=== PATIENT | female | born 1930 | race Caucasian/White ===

== ENCOUNTER → 2017-08-23 | Outpatient (CLI) | payer MEDICARE | LOC: GMAB 10:39 | PROVIDERS: ATTEND Family Medicine | DX: I10 Essential (primary) hypertension (principal) ==

== ENCOUNTER → 2017-10-12 | Outpatient (CLI) | payer MEDICARE | LOC: GMAE 14:30 | PROVIDERS: ATTEND Family Medicine | DX: R63.4 Abnormal weight loss (principal) ==

== ENCOUNTER 2019-06-11 | Observation (INO) | payer MEDICARE | END 2019-06-12 16:55 | disposition home health service (06) | PROVIDERS: ADMIT Nurse Practitioner Family | DX: I48.91 Unspecified atrial fibrillation (principal); R29.810 Facial weakness; N30.00 Acute cystitis without hematuria; E80.6 Other disorders of bilirubin metabolism; R79.89 Other specified abnormal findings of blood chemistry; I11.9 Hypertensive heart disease without heart failure; E78.5 Hyperlipidemia, unspecified; M19.90 Unspecified osteoarthritis, unspecified site; M47.812 Spondylosis without myelopathy or radiculopathy, cervical region; R90.82 White matter disease, unspecified; I70.8 Atherosclerosis of other arteries; K80.20 Calculus of gallbladder without cholecystitis without obstruction; K57.30 Diverticulosis of large intestine without perforation or abscess without bleeding; M85.88 Other specified disorders of bone density and structure, other site; J44.9 Chronic obstructive pulmonary disease, unspecified; Z79.82 Long term (current) use of aspirin; Z79.899 Other long term (current) drug therapy; Z86.79 Personal history of other diseases of the circulatory system; Z95.0 Presence of cardiac pacemaker; Z90.12 Acquired absence of left breast and nipple; Z85.828 Personal history of other malignant neoplasm of skin; Z82.3 Family history of stroke; Z80.3 Family history of malignant neoplasm of breast; Z83.6 Family history of other diseases of the respiratory system | CPT/HCPCS: 96361; 96365; 96375 ×2; 96376 ×2; 96372; J0696 ×2; J2405; J7030 ×2; J1650; J7050 ×4; 80053; 87086; 80061; 36415; 81001; 85025; 82550; 83735; 85730; 85610; 84443; 84484; 83880; 83605; 71045; 71046; 72170; 70450; 72125; 74177; 93880; 94760; 97162; 99285; 93306; 93005; G0378 ==

== ENCOUNTER → 2019-09-06 | Outpatient (CLI) | payer MEDICARE | LOC: GMAE 10:48 | PROVIDERS: ATTEND Family Medicine | DX: I48.91 Unspecified atrial fibrillation (principal) ==

== ENCOUNTER 2019-09-08 | Emergency (ER) | payer MEDICARE ==
--- NOTE | 2019-09-08 20:11 | ED.PDOC ---
History of Present Illness - General Time Seen by Provider: 09/08/19 19:41 Source: patient, family Exam Limitations: clinical condition - History of Present Illness Initial Comments: The patient is a 89-year-old female presented emergency room secondary to edema to the lower left lower extremity. Edema has been present for 7 to 10 days. Edema started after the patient accidentally tripped and fell and hit the side of her calf on something. She has a fairly large bruise there. She has been ambulatory without significant difficulty since but the edema has been accumulating since that time. Has a small amount of weeping. No evidence of any infection. She has had increased edema on his lower extremity before. She does take a diuretic. No neurovascular change otherwise. The bruise to the lateral calf is approximately 4 inches x 2 inches. Timing/Duration: other Severity: moderate Improving Factors: nothing Worsening Factors: nothing Associated Symptoms: denies symptoms Allergies/Adverse Reactions: Allergies NO KNOWN ALLERGY Allergy (Verified 06/11/19 21:39) Home Medications: Ambulatory Orders Cefuroxime Axetil [Ceftin] 500 mg PO Q12H #14 tablet 06/12/19 Clopidogrel Bisulfate [Plavix] 75 mg PO DAILY #30 tab 06/12/19 Furosemide Tab 20 mg PO DAILY 06/12/19 Verapamil HCl [Verapamil Hydrochloride] 60 mg PO DAILY 06/12/19 Review of Systems - Review of Systems Constitutional: States: no symptoms reported EENTM: States: no symptoms reported Respiratory: States: no symptoms reported Cardiology: States: no symptoms reported Gastrointestinal/Abdominal: States: no symptoms reported Genitourinary: States: no symptoms reported Musculoskeletal: States: see HPI Skin: States: see HPI Neurological: States: no symptoms reported Endocrine: States: no symptoms reported All other Systems: No Change from Baseline Past Medical History (General) - Patient Medical History Hx Seizures: No Hx Stroke: Yes Hx Dementia: No Hx Asthma: No Hx of COPD: No Hx Cardiac Disorders: Yes - A Fib Hx Congestive Heart Failure: No Hx Pacemaker: No Hx Hypertension: Yes Hx Thyroid Disease: No Hx Diabetes: No Hx Gastroesophageal Reflux: No Hx Renal Disease: No Hx Cancer: Yes - Breast Hx of HIV: No Hx Hepatitis C: No Hx MRSA: No Surgical History: appendectomy, other - Vaccination History Hx Tetanus, Diphtheria Vaccination: Yes Hx Influenza Vaccination: Yes Hx Pneumococcal Vaccination: Yes - Social History Hx Tobacco Use: No Hx Chewing Tobacco Use: No Hx Alcohol Use: No Hx Substance Use: No Hx Substance Use Treatment: No Hx Depression: No Feels Threatened In Home Enviroment: No Feels Threatened In a Relationship: No Hx Physical Abuse: No Hx Emotional Abuse: No Hx Suspected Abuse: No - Female History Patient is a Female of Child Bearing Age (10 -59 yrs old): No Family Medical History - Family History Father Living Status: Hx Family;Other: TB Mother Family History: Unknown Living Status: Hx Family Stroke: Yes Sister Family History: Unknown Hx Family Cancer: Yes Hx Family;Other: breast ca Physical Exam - Physical Exam General Appearance: Alert, Comfortable, No apparent distress Eye Exam: bilateral normal Ears, Nose, Throat: hearing grossly normal, normal pharynx Neck: non-tender, supple Respiratory: no respiratory distress, no accessory muscle use Peripheral Pulses: dorsalis pedis,right: 2+, dorsalis pedis,left: 2+ Gastrointestinal/Abdominal: non tender, soft Rectal Exam: deferred Extremity: normal range of motion, no calf tenderness - Except at the site of the bruise, normal capillary refill, other - 3+ edema to the left lower extremity. 1+ edema to the right lower extremity. Edema is only on the lowest part of the legs Neurologic: log buyer II-XII nml as tested, alert, normal mood/affect Skin Exam: normal color - Bruising as above Comments: Vital Signs - 24 hr 09/08/19 19:56 Temperature 97.5 F L Pulse Rate [ 80 Pulse ox] Respiratory 14 Rate Blood Pressure 121/71 [Left Arm] O2 Sat by Pulse 96 Oximetry Progress - Progress Progress: 09/08/19 20:12 The patient is an 89-year-old female presented emergency room with significant edema to the left lower extremity that is likely posttraumatic, given the recent fall and the bruising noted and the position of the edema. No palpable cords and no clinical evidence of DVT otherwise. She is already taking a diuretic and I do not believe that we need to increase that at this time. Instead external compression should be favored. An Ab wrap was put in place here tonight and needs to be adjusted every 3 hours. She apparently does have compression stockings at home and this would be the preferred method of providing external compression in order to remove the fluid. No evidence of infection at this time. No evidence of musculoskeletal instability underlying. I would like her to be looked at again by her primary care doctor around the middle of the week to make sure it is correcting appropriately. ER warnings are given. [email or web address] warren [id number] Departure - Departure Clinical Impression: Dependent edema Contusion, lower leg Qualifiers: Encounter type: initial encounter Laterality: left Qualified Code(s): S80.12XA - Contusion of left lower leg, initial encounter Disposition: Discharge to Home or Self Care Condition: Fair Diet: low salt diet Activity: increase activity as tolerated Referrals: Valentín Valdivia MD [Primary Care Provider] - 1-5 Days Home Medications: Ambulatory Orders Cefuroxime Axetil [Ceftin] 500 mg PO Q12H #14 tablet 06/12/19 Clopidogrel Bisulfate [Plavix] 75 mg PO DAILY #30 tab 06/12/19 Furosemide Tab 20 mg PO DAILY 06/12/19 Verapamil HCl [Verapamil Hydrochloride] 60 mg PO DAILY 06/12/19 Additional Instructions: The patient is an 89-year-old female presented emergency room with significant edema to the left lower extremity that is likely posttraumatic, given the recent fall and the bruising noted and the position of the edema. No palpable cords and no clinical evidence of DVT otherwise. She is already taking a diuretic and I do not believe that we need to increase that at this time. Instead external compression should be favored. An Ab wrap was put in place here tonight and needs to be adjusted every 3 hours. She apparently does have compression stockings at home and this would be the preferred method of providing external compression in order to remove the fluid. No evidence of infection at this time. No evidence of musculoskeletal instability underlying. I would like her to be looked at again by her primary care doctor around the middle of the week to make sure it is correcting appropriately. ER warnings are given.
== END 2019-09-08 20:28 | disposition home or self-care (01) ==

== ENCOUNTER 2019-10-09 18:42 | Emergency (ER) | payer MEDICARE ==
[2019-10-09] MEDS ORDERED: SULFA/TRIMETH 800/160 (DS) TAB 1 EA TAB PO ONE (22:15)
[2019-10-09 22:32] VITALS: O2SAT 98
--- NOTE | 2019-10-09 22:33 | ED.PDOC ---
History of Present Illness - General Chief Complaint: Trauma Stated Complaint: s/p fall,skin tears Time Seen by Provider: 10/09/19 20:11 Source: patient Exam Limitations: no limitations - History of Present Illness Initial Comments: FELL TODAY AT HOME OUTSIDE. SKIN LAC BL HANDS. TDAP APPROX 1 YR AGO. Occurred: just prior to arrival Severity: moderate Pain Location: upper extremity Method of Injury: fall Improving Factors: nothing Worsening Factors: nothing Loss of Consciousness: no loss of consciousness Associated Symptoms (Fall): denies symptoms Allergies/Adverse Reactions: Allergies NO KNOWN ALLERGY Allergy (Verified 06/11/19 21:39) Home Medications: Ambulatory Orders Cefuroxime Axetil [Ceftin] 500 mg PO Q12H #14 tablet 06/12/19 Clopidogrel Bisulfate [Plavix] 75 mg PO DAILY #30 tab 06/12/19 Furosemide Tab 20 mg PO DAILY 06/12/19 Verapamil HCl [Verapamil Hydrochloride] 60 mg PO DAILY 06/12/19 Sulfa/Trimeth 800/160 (Ds) Tab [Bactrim DS Tab] 1 unit PO BID #14 tab 10/09/19 Review of Systems - Review of Systems Constitutional: States: no symptoms reported EENTM: States: no symptoms reported Respiratory: States: no symptoms reported Cardiology: States: no symptoms reported Gastrointestinal/Abdominal: States: no symptoms reported Genitourinary: States: no symptoms reported Musculoskeletal: States: no symptoms reported Skin: States: see HPI, lesions. Denies: rash Neurological: States: no symptoms reported Endocrine: States: no symptoms reported Hematologic/Lymphatic: States: no symptoms reported All other Systems: Reviewed and Negative Past Medical History (General) - Patient Medical History Hx Seizures: No Hx Stroke: Yes Hx Dementia: No Hx Asthma: No Hx of COPD: No Hx Cardiac Disorders: Yes - A Fib Hx Congestive Heart Failure: No Hx Pacemaker: No Hx Hypertension: Yes Hx Thyroid Disease: No Hx Diabetes: No Hx Gastroesophageal Reflux: No Hx Renal Disease: No Hx Cancer: Yes - Breast Hx of HIV: No Hx Hepatitis C: No Hx MRSA: No Surgical History: pacemaker - Vaccination History Hx Tetanus, Diphtheria Vaccination: Yes - 1 year ago Hx Influenza Vaccination: Yes Hx Pneumococcal Vaccination: Yes - Social History Hx Tobacco Use: No Hx Chewing Tobacco Use: No Hx Alcohol Use: No Hx Substance Use: No Hx Substance Use Treatment: No Hx Depression: No Hx Physical Abuse: No Hx Emotional Abuse: No Hx Suspected Abuse: No Family Medical History - Family History Father Living Status: Hx Family;Other: TB Mother Family History: Unknown Living Status: Hx Family Stroke: Yes Sister Family History: Unknown Hx Family Cancer: Yes Hx Family;Other: breast ca Physical Exam - Physical Exam General Appearance: Alert, No apparent distress Head Injury: no evidence of injury Eye Exam: bilateral normal ENT Exam: hearing grossly normal, no evidence of ENT injury Neck Exam: non-tender, full range of motion, normal inspection Cardiovascular/Respiratory: regular rate, rhythm, no M/R/G, normal breath sounds Gastrointestinal/Abdominal: normal bowel sounds, non tender Back Exam: normal inspection Extremity Exam: normal range of motion, no pedal edema Neurologic: alert, normal mood/affect Skin Exam: other - R DORSUM OF HAND: 8 CM SKIN TEAR. L DORSUM OF HAND: 3 CM SKIN TEAR. Progress - Progress Progress: 10/09/19 22:43 REPAIRED LAC. RX BACTRIM PPX SINCE SKIN TEARS LARGE AND ON HANDS. Procedures - Laceration/Wound Repair Right Hand Wound Length (cm): 11 - 8 CM L HAND, 3 CM R HAND. Wound's Depth, Shape: superficial, irregular Wound Explored: clean Irrigated w/ Saline (cc's): 20 Betadine Prep?: Yes Wound Repaired With: steri-strips Layer Closure?: No Sterile Dressing Applied?: Yes Splint Applied?: No Sling Applied?: No Departure - Departure Clinical Impression: Skin tear of hand without complication Qualifiers: Encounter type: initial encounter Laterality: right Qualified Code(s): S61.411A - Laceration without foreign body of right hand, initial encounter Fall Qualifiers: Encounter type: initial encounter Qualified Code(s): W19.XXXA - Unspecified fall, initial encounter Disposition: Discharge to Home or Self Care Condition: Good Departure Forms: ED Discharge - Pt. Copy, Patient Portal Self Enrollment Instructions: Wound Care (DC) Diet: resume usual diet Activity: increase activity as tolerated Referrals: SPENCER TAPIA MD [Primary Care Provider] - 1-2 Weeks Prescriptions: Sulfa/Trimeth 800/160 (Ds) Tab [Bactrim DS Tab] 1 unit PO BID #14 tab Home Medications: Ambulatory Orders Cefuroxime Axetil [Ceftin] 500 mg PO Q12H #14 tablet 06/12/19 Clopidogrel Bisulfate [Plavix] 75 mg PO DAILY #30 tab 06/12/19 Furosemide Tab 20 mg PO DAILY 06/12/19 Verapamil HCl [Verapamil Hydrochloride] 60 mg PO DAILY 06/12/19 Sulfa/Trimeth 800/160 (Ds) Tab [Bactrim DS Tab] 1 unit PO BID #14 tab 10/09/19 Additional Instructions: Please leave the steri strips on until they fall off naturally. Then cleanse the hands twice per day with soapy water, apply neosporin, and cover with a bandage. Bactrim is the antibiotic to take for 7 days to prevent infection.
[2019-10-09 22:53] VITALS: BP 134/95; TEMP 97.4
== END 2019-10-09 22:53 | disposition home or self-care (01) ==
LOC: ER 18:42
DX: S61.411A Laceration without foreign body of right hand, initial encounter (principal); S61.412A Laceration without foreign body of left hand, initial encounter; I10 Essential (primary) hypertension; I48.91 Unspecified atrial fibrillation; Z79.02 Long term (current) use of antithrombotics/antiplatelets; Z86.73 Personal history of transient ischemic attack (TIA), and cerebral infarction without residual deficits; W19.XXXA Unspecified fall, initial encounter; Y92.009 Unspecified place in unspecified non-institutional (private) residence as the place of occurrence of the external cause

== ENCOUNTER → 2019-12-04 | Outpatient (CLI) | payer MEDICARE ==
--- NOTE | 2019-12-04 19:30 | CT ---
EXAM DESCRIPTION: CT head without contrast CLINICAL HISTORY: DEMENTIA COMPARISON: Previous CT head June 11, 2019 TECHNIQUE: Noncontrast head CT was performed with routine protocol. 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 This could be a chronic or a subacute infarct. No mass effect. The lateral ventricle in the region appears slightly enlarged suggesting volume loss. No sulcal effacement in the region. MRI may be helpful for further characterization. Prominent CSF spaces anterior to the temporal lobes could be arachnoid cysts or temporal lobe atrophy with ex vacuo prominence. Prominent sulci and sylvian fissures with prominent ventricles consistent with generalized age-related cerebral volume loss. Low density areas in the white matter indicates chronic microvascular ischemic disease. No high density hemorrhage, focal edema or shift of the midline. No sulcal effacement. Normal orbital contents. Basilar cisterns appear clear. Intact calvarium with no fracture or lytic lesion. Calcified intracranial internal carotid arteries. Normal aeration of tympanic cavities and mastoid air cells. No fluid levels in the paranasal sinuses. Skull base appears intact. Symmetrical internal auditory canals. 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 See above. This exam was performed according to our departmental dose-optimization program, which includes automated exposure control, adjustment of the mA and/or kV according to patient size and/or use of iterative reconstruction technique. Total DLP equals 859.97 mGycm. Electronically signed by: David Cheney MD 12/04/2019 7:28 PM CDT
== END ==
LOC: MRI 09:55
PROVIDERS: ATTEND Family Medicine
DX: I63.9 Cerebral infarction, unspecified (principal); F03.90 Unspecified dementia, unspecified severity, without behavioral disturbance, psychotic disturbance, mood disturbance, and anxiety

== ENCOUNTER → 2020-01-10 | Outpatient (CLI) | payer MEDICARE | LOC: GMAE 17:01 | PROVIDERS: ATTEND Family Medicine | DX: I48.0 Paroxysmal atrial fibrillation (principal) ==

== ENCOUNTER → 2020-01-24 | Outpatient (CLI) | payer MEDICARE | LOC: GMAE 16:43 | PROVIDERS: ATTEND Family Medicine | DX: I48.0 Paroxysmal atrial fibrillation (principal); I10 Essential (primary) hypertension ==